=== PATIENT | male | born 1965 | race African-American/Black ===

== ENCOUNTER 2020-10-31 20:10 | Emergency (ER) | payer MEDICARE, MEDICAID ==
[~2020-10-31] VITALS: Ht 167.6 cm; Wt 89.4 kg
[2020-10-31 20:23] VITALS: BP 132/79
--- NOTE | 2020-10-31 20:50 | NUR ---
patient to bed 9
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
--- NOTE | 2020-10-31 21:30 | NUR ---
ERMD at bedside for examination
--- NOTE | 2020-10-31 22:00 | NUR ---
patient to CT
--- NOTE | 2020-10-31 22:36 | NUR ---
patient back from CT
--- NOTE | 2020-10-31 22:55 | NUR ---
patient complains of pain starting from the left side and has slowly been shooting up all the way to the head--ERMD made aware
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
[2020-11-01] MEDS ORDERED: KETOROLAC 30 MG/ML VIAL IVP ONE (00:30)
[2020-11-01] MEDS ORDERED: IBUP-2218 PO (00:37)
[2020-11-01] MEDS ORDERED: CYCL-711 PO (00:37)
--- NOTE | 2020-11-01 01:00 | NUR ---
IV removed, catheter intact and site benign. Applied folded 4x4 gauze and tape to stop bleeding.
[2020-11-01 01:12] VITALS: BP 148/82
--- NOTE | 2020-11-01 01:12 | NUR ---
Patient discharged without discharged papers, but patient is stable. Written and verbal after care instructions given and explained. Patient alert, oriented and verbalized understanding of instructions. Ambulatory with steady gait. All questions addressed prior to discharge. ID band removed. Patient advised to follow up with PMD. Rx of Ibuprofen and Flexeril given. Patient educated on indication of medication including possible reaction and side effects. Opportunity to ask questions provided and answered.
== END 2020-11-01 01:12 | disposition home or self-care (01) ==
LOC: MED 20:10
DX: F10.129 Alcohol abuse with intoxication, unspecified (principal); M54.9 Dorsalgia, unspecified; R10.84 Generalized abdominal pain; I10 Essential (primary) hypertension; V98.8XXA Other specified transport accidents, initial encounter; Y93.89 Activity, other specified; Y92.89 Other specified places as the place of occurrence of the external cause; Y99.8 Other external cause status
CPT/HCPCS: 70450; 71250; 72125; 72128; 72131; 74176; 93005; 96374; 99285; J1885